=== PATIENT | male | born 1950 | race Caucasian/White ===

== ENCOUNTER → 2017-05-13 | Outpatient (CLI) | payer OTHER ==
[~2017-05-13] VITALS: Ht 167.6 cm; Wt 74.3 kg
[~2017-05-13] MED LIST: AMLO-512 PO; ASCO500 PO; ASPI-1061 PO; ATOR80TA76 PO; CARV6 PO; CLON.1 PO; DOCU250C91 PO; FERR-89 PO; FURO40 PO; INSNOV SQ; LIDOCAINE HCL 2% 5 ML JELLY TP ONE; LOSA25TA21 PO; METO50TA5 PO; PANT40TA25 PO; SENN8.6T52 PO; SERT20OR6 PO; SIMV-260 PO; VITAD50000 PO
[2017-05-13 14:16] VITALS: BP 122/51
== END | disposition home or self-care (01) ==
LOC: HBOWC 12:54
PROVIDERS: ATTEND Emergency Medicine
DX: E11.621 Type 2 diabetes mellitus with foot ulcer (principal); L97.411 Non-pressure chronic ulcer of right heel and midfoot limited to breakdown of skin; F10.10 Alcohol abuse, uncomplicated; M72.6 Necrotizing fasciitis; M86.8X8 Other osteomyelitis, other site; I10 Essential (primary) hypertension; F32.9 Major depressive disorder, single episode, unspecified; Z68.27 Body mass index [BMI] 27.0-27.9, adult; Z89.519 Acquired absence of unspecified leg below knee
CPT/HCPCS: 97597; 97598

== ENCOUNTER → 2017-06-05 | Outpatient (CLI) | payer OTHER ==
[~2017-06-05] MED LIST changes: -ATOR80TA76 PO; +COLL30OI TP
[2017-06-05 11:37] VITALS: BP 139/70
== END | disposition home or self-care (01) ==
LOC: HBOWC 10:59
PROVIDERS: ATTEND Emergency Medicine
DX: E11.621 Type 2 diabetes mellitus with foot ulcer (principal); L97.411 Non-pressure chronic ulcer of right heel and midfoot limited to breakdown of skin; F10.10 Alcohol abuse, uncomplicated; I10 Essential (primary) hypertension; M72.6 Necrotizing fasciitis; E11.69 Type 2 diabetes mellitus with other specified complication; M86.8X8 Other osteomyelitis, other site; Z89.512 Acquired absence of left leg below knee; Z68.27 Body mass index [BMI] 27.0-27.9, adult
CPT/HCPCS: 97597; 97598

== ENCOUNTER → 2017-06-18 | Outpatient (CLI) | payer OTHER ==
[~2017-06-18] MED LIST changes: -LIDOCAINE HCL 2% 5 ML JELLY TP ONE; +LIDOCAINE HCL 2%/EPI 1:200,000/PF 10 ML VIAL IM ONE
[2017-06-18 11:41] VITALS: BP 146/75
== END | disposition home or self-care (01) ==
LOC: MSR 08:39
PROVIDERS: ATTEND Emergency Medicine Undersea and Hyperbaric Medicine
DX: E11.621 Type 2 diabetes mellitus with foot ulcer (principal); L97.419 Non-pressure chronic ulcer of right heel and midfoot with unspecified severity; L98.429 Non-pressure chronic ulcer of back with unspecified severity; E11.22 Type 2 diabetes mellitus with diabetic chronic kidney disease; N18.9 Chronic kidney disease, unspecified; I50.9 Heart failure, unspecified
CPT/HCPCS: 93925; J3490